=== PATIENT | female | born 1960 | race Caucasian/White ===

== ENCOUNTER 2024-06-03 16:15 | Emergency (ER) | payer OTHER, SELFPAY ==
[2024-06-03 16:20] VITALS: BP 106/64
[2024-06-03 16:51] LABS: % Basophils 0.2 % (0-2); % Eosinophils 0.2 % (0-6); % Immature Granulocytes 0.5 % (0-0.5); % Monocytes 8.4 % (1.7-9.3); % Neutrophils 77.7 % (42.2-75.2); Absolute Lymphocytes 1.1 10^3/uL (1.2-3.4); Absolute Monocytes 0.7 10^3/uL (0.1-0.6); Absolute Neutrophils 6.3 10^3/uL (1.4-6.5); Hematocrit 35.8 % (37.0-47.0); Hemoglobin 12.4 g/dL (12.0-16.0); Mean Corp Hgb Conc. 34.6 g/dL (33.0-37.0); Mean Corpuscular Hgb 31.9 pg (27.0-31.0); Mean Platelet Volume 10.6 fL (7.4-10.4); Nucleated Red Blood Cells % 0 %; Platelet Count 283 10^3/uL (130-400); Red Blood Cell Count 3.89 10^6/uL (4.20-5.40); Red Cell Dist. Width 12.1 % (11.5-14.5); White Blood Cell Count 8.1 10^3/uL (4.8-10.8)
[2024-06-03 17:13] LABS: ALT (SGPT) 59 U/L (0-35); AST (SGOT) 61 U/L (14-36); Albumin 4.4 g/dl (3.5-5.0); Alkaline Phosphatase 132 U/L (38-126); Blood Urea Nitrogen 16 mg/dl (7-17); Calcium 9.2 mg/dl (8.4-10.2); Carbon Dioxide 25 mmol/L (22-30); Chloride 100 mmol/L (98-107); Glucose 125 mg/dl (70-99); Lipase 55 U/L (23-300); Potassium 4.1 mmol/L (3.5-5.1); Sodium 137 mmol/L (135-145); Total Bilirubin 0.5 mg/dl (0.2-1.3); eGFR > 60.00
[2024-06-03] MEDS: ZOFRAN 4 MG IV (18:50)
--- NOTE | 2024-06-03 20:33 | ED.GENMED ---
History of Present Illness
General
Chief Complaint: Abdominal Pain
Time Seen by Provider: 06/03/24 17:43
History of Present Illness
History of Present Illness:
63-year-old female presents to the emergency department for evaluation of generalized lower abdominal cramping for the past 5 days associated with nausea. She reports mucousy stools and increased bowel movement frequency. Developed a fever of 101
Fahrenheit today. No vomiting. No prior abdominal surgical history. Does have known diverticulosis seen on colonoscopy
Review of Systems
Review of Systems
Allergies reviewed?: Yes
All Other Systems: ROS reviewed and negative except as documented in HPI and ROS
Phy Exam
Physical Exam
Physical Exam:
GEN: Well appearing, NAD, WDWN
HEENT: Oral mucosa moist, no scleral icterus
Cardiac: Regular rate
Lung: No respiratory distress, no tachypnea
Abdomen: Soft, moderate diffuse tenderness to the lower abdomen, no rigidity or peritoneal signs
MSK: No gross deformity or injuries
Skin: Good color, no pallor or jaundice, no rashes
Neuro: AO x3, moves all extremities freely
Psych: Calm, cooperative
Course
Orders/Labs/Results
Orders:
Orders
06/03/24 16:36
Complete Blood Count/With Diff Urgent
Comprehensive Metabolic Panel Urgent
Lipase Urgent
06/03/24 18:32
CT Abd/Pel (IV only)-DH only Urgent
Comment:
Reason For Exam: LLQ pain
Ondansetron Injectable [Zofran] 4 mg IV NOW STA
06/03/24 20:29
Amoxicillin 875 mg/Clav 125 mg [Augmentin 875 mg/125 mg] 1 tablet PO NOW STA
Abnormal Lab Results
06/03/24
16:36
RBC 3.89 L 10^6/uL
(4.20-5.40)
Hct 35.8 L %
(37.0-47.0)
MCH 31.9 H pg
(27.0-31.0)
MPV 10.6 H fL
(7.4-10.4)
Absolute Lymphs (auto) 1.1 L 10^3/uL
(1.2-3.4)
Absolute Monos (auto) 0.7 H 10^3/uL
(0.1-0.6)
Neutrophils % 77.7 H %
(42.2-75.2)
Lymphocytes % 13.0 L %
(20.5-51.1)
Creatinine 0.5 L mg/dL
(0.6-1.0)
Glucose 125 H mg/dl
(70-99)
AST 61 H U/L
(14-36)
ALT 59 H U/L
(0-35)
Alkaline Phosphatase 132 H U/L
(38-126)
06/03/24 16:36
06/03/24 16:36
Vital Signs
Initial and Last Documented VS:
Initial Vital Signs
Temp Pulse Resp BP Pulse Ox
99.7 F 80 16 106/64 100
06/03/24 16:20 06/03/24 16:20 06/03/24 16:20 06/03/24 16:20 06/03/24 16:20
Last Documented Vital Signs
Temp Pulse Resp BP Pulse Ox
99.7 F 80 16 106/64 100
06/03/24 16:20 06/03/24 16:20 06/03/24 16:20 06/03/24 16:20 06/03/24 16:20
MDM/Problems Addressed
MDM/Problems Addressed:
CT confirms acute diverticulitis with no evidence of complications or secondary findings. Labs reassuring. Suitable for outpatient management.
*Critical Care Note
Total Time (30-74mins, 75-104mins- exclusive of procedures): Not Applicable
ED Attending Note
-
Portions of this chart may have been created with voice recognition software.� Occasional wrong word or��sound alike� substitutions may have occurred due to the inherent limitations of voice recognition software.
Discharge Plan
Departure
Patient Disposition: Home (Routine Discharge)
Date of Disposition: 06/03/24
Time of Disposition: 20:33
Patient with high blood pressure during this ER visit?: No
Discharge Problem:
Acute diverticulitis
Instructions: Clear Liquid Diet, Diverticulitis (DC)
Prescriptions:
New
amoxicillin-pot clavulanate 875-125 mg tablet
1 tab PO BID Qty: 19 0RF
Referrals:
PRIVATE,PHYSICIAN [Family Provider] -
Activity Restrictions/Additional Instructions:
Clear liquids for the next 48 hours then gradually resume a normal diet. High-fiber diet after completion of antibiotics. If symptoms worsening or not improving after 72 hours please return to the emergency department
Interventions
Interventions:
*Risk Screen - Suicide Last Done: 06/03/24 16:20
ED- Fall Risk Assessment Last Done: 06/03/24 20:32
*Nursing Disposition Last Done: 06/03/24 20:50
SZ-Onpcmz-Xzvsmwlowf Assessment Last Done: 06/03/24 20:32
ED- Pulmonary Assessment Last Done: 06/03/24 20:32
Discharge Date and Time
Discharge Date/Time: 06/03/24 20:51
Print Language: [email or web address]
[2024-06-03] MEDS: AUGMENTIN 875 MG/125 MG 1 TABLET PO (20:40)
== END 2024-06-03 20:51 | disposition home or self-care (01) ==
LOC: EMR 16:15
PROVIDERS: Emergency Medicine; EMERGENCY PHYSICIAN Emergency Medicine
DX: K57.32 Diverticulitis of large intestine without perforation or abscess without bleeding (principal)
CPT/HCPCS: 96374; 99284; 74177; 80053; 83690; 85025; Q9967

== ENCOUNTER → 2025-01-26 12:59 | Outpatient (REF) | payer OTHER, SELFPAY | LOC: HWRAD 12:59 | PROVIDERS: ATTENDING PHYSICIAN Specialist | DX: M25.512 Pain in left shoulder (principal) | CPT/HCPCS: 73200 ==